=== PATIENT | male | born 1965 | race Hispanic/Latino ===

== ENCOUNTER 2016-08-11 02:28 | Emergency (ER) | payer MEDICAID ==
[2016-08-11 02:29] VITALS: BMI 21.9
[2016-08-11 02:52] VITALS: BP 115/69; PULSE 67; RESP 16; TEMP 97.6; O2SAT 100
--- NOTE | 2016-08-11 03:06 | ED PDOC ---
HPI: Back Time Seen by Provider: 08/11/16 03:05 Chief Complaint (Nursing): Back Pain Chief Complaint (Provider): back pain History Per: Patient Additional Complaint(s): 50-year-old male with no past medical history presents to emergency Department with pain to the right rib region status post fall 4 days ago. Patient took Silvana aspirin which did help the pain. He states pain is better with rest, worse with heavy lifting or movement of torso. No associated chest pain, SOB or NUR. Past Medical History Reviewed: Historical Data, Nursing Documentation, Vital Signs Vital Signs: Last Vital Signs Temp 97.6 F 08/11/16 02:44 Pulse 67 08/11/16 02:44 Resp 16 08/11/16 02:44 BP 115/69 08/11/16 02:44 Pulse Ox 100 08/11/16 02:44 - Medical History PMH: No Chronic Diseases - Surgical History Surgical History: No Surg Hx - Family History Family History: States: No Known Family Hx - Living Arrangements Living Arrangements: Alone - Social History Current smoker - smoking cessation education provided: Yes Alcohol: Social Drugs: Denies - Home Medications Home Medications: Ambulatory Orders Medication Instructions Recorded traMADol [Ultram] 50 mg PO Q6H PRN #15 tab 01/09/15 Ibuprofen 600 mg PO Q6 PRN #20 tablet 08/18/15 Salicylic Acid [Wart Remover] 9.12 ml TP BID #1 liquid 10/31/15 Albuterol HFA [Ventolin HFA 90 2 puff IH [id number] PRN #0 puff 11/09/15 mcg/actuation (8 g)] Azithromycin [Zithromax] 1 tab PO DAILY #6 tablet 11/09/15 Promethazine DM [Phenergan DM 5 ml PO BID PRN #120 ml 11/09/15 Syrup] Clotrimazole 1% [Lotrimin AF 1%] 0.5 gm TOP BID #1 bottle 02/18/16 Cyclobenzaprine [Cyclobenzaprine 10 mg PO Q8 PRN #9 tab 04/03/16 HCl] Naproxen [Naprosyn] 500 mg PO BID PRN #14 tablet 04/03/16 traMADol [Ultram] 50 mg PO TID PRN #12 tab 04/03/16 Ibuprofen [Motrin] 600 mg PO Q6 PRN #15 tab 08/11/16 - Allergies Allergies/Adverse Reactions: Allergies Allergy/AdvReac Type Severity Reaction Status Date / Time No Known Allergies Allergy Verified 08/11/16 02:43 Review of Systems ROS Statement: Except As Marked, All Systems Reviewed And Found Negative Musculoskeletal: Positive for: Other (right rib injury s/p fall 4 days ago) Physical Exam - Reviewed Nursing Documentation Reviewed: Yes Vital Signs Reviewed: Yes - Physical Exam Appears: Positive for: Well, Non-toxic, No Acute Distress Skin: Negative for: Rash Neck: Positive for: Painless ROM Cardiovascular/Chest: Positive for: Regular Rate, Rhythm, Other (mild tenderness along right costal margin and right lateral chest wall with no ecchymosis or palpable bony deformity) Respiratory: Positive for: Normal Breath Sounds. Negative for: Accessory Muscle Use, Respiratory Distress Gastrointestinal/Abdominal: Positive for: Normal Exam, Soft. Negative for: Tenderness Back: Positive for: R CVA Tenderness (mild). Negative for: L CVA Tenderness, Vertebral Tenderness Extremity: Positive for: Normal ROM. Negative for: Pedal Edema Neurologic/Psych: Positive for: Alert, Oriented, Gait (steady) - ECG O2 Sat by Pulse Oximetry: 100 Pulse Ox Interpretation: Normal - Other Rad CXR with right rib series X-Ray: Interpreted by Me, Viewed By Me X-Ray Interpretation: no acute rib fracture Medical Decision Making Medical Decision Makin50 year old with right rib injury, no resp distress noted. Plan: PO motrin CXR with right rib series Patient feels better after motrin dose. He is aware of x-ray results. All questions answered. Rx motrin given. Patient was counseled regarding smoking cessation. Patient was referred to clinic for follow up. Disposition - Clinical Impression Clinical Impression: Rib contusion - Patient ED Disposition Is Patient to be Admitted: No Counseled Patient/Family Regarding: Studies Performed, Diagnosis, Need For Followup, Rx Given, Smoking Cessation - Disposition Referrals: [facility] [Outside] Disposition: Routine/Home Disposition Time: 05:11 Condition: STABLE Additional Instructions: Take rx meds as directed as needed for pain. Follow up in 2-3 days with clinic. Prescriptions: Ibuprofen [Motrin] 600 mg PO Q6 PRN #15 tab PRN Reason: Pain, Moderate (4-7) Instructions: Rib Contusion (ED)
--- NOTE | 2016-08-11 10:58 | RAD ---
PROCEDURE: Radiographs of the Chest and Right Ribs. HISTORY: trauma COMPARISON: Chest x-ray performed 11/09/15 TECHNIQUE: Frontal radiograph of the chest and multiple oblique radiographs of the right ribs were obtained. FINDINGS: RIGHT RIBS: No acute displaced fracture identified. LUNGS: No focal consolidation. Please note that chest x-ray has limited sensitivity for the detection of pulmonary masses. PLEURA: No significant pleural effusion. No definite pneumothorax. CARDIOVASCULAR: Heart size appears within normal limits. OTHER FINDINGS: None. IMPRESSION: Unremarkable radiographs of the chest and right ribs. No appreciable displaced right rib fracture.
== END 2016-08-11 05:30 | disposition home or self-care (01) ==
LOC: H.ER 02:28
DX: S20.219A Contusion of unspecified front wall of thorax, initial encounter (principal); W19.XXXA Unspecified fall, initial encounter; Y92.89 Other specified places as the place of occurrence of the external cause

== ENCOUNTER 2016-09-02 07:34 | Emergency (ER) | payer MEDICAID ==
[2016-09-02 07:40] VITALS: BMI 21.2
[2016-09-02 07:41] VITALS: BP 124/74; PULSE 78; RESP 18; TEMP 98; O2SAT 100
[2016-09-02] MEDS ORDERED: Oxycodone/Acetaminophen 5/325 mg Tab PO ONE (08:09)
[2016-09-02] MEDS ORDERED: Oxycodone/Acetaminophen 5/325 mg Tab ONE (08:21)
--- NOTE | 2016-09-02 08:28 | ED PDOC ---
Upper Extremity Pain/Injury Time Seen by Provider: 09/02/16 07:48 Chief Complaint (Nursing): Upper Extremity Problem/Injury Chief Complaint (Provider): Right upper back pain History Per: Patient History/Exam Limitations: no limitations Onset/Duration Of Symptoms: Days (3) Current Symptoms Are (Timing): Still Present Quality: "Pain" Severity: Moderate Exacerbating Factor(s): Strenuous Use Of Affected Area Additional History Per: Patient Additional Complaint(s): The pt. is a 50yo male, present to the ED for evaluation of right upper back pain since 3 days ago; pt. reports he was painting and lifted a paint can after which he felt the pain. Pt reports the pain radiates down to his right elbow and has been constant. Pt. states he has been taking Aspirin with no relief - additionally reports took 3x 600 mg of Aleve this morning without relief. He denies any chest pain, shortness of breath, headache, nausea, vomiting, abdominal pain, numbness or tingling. Pt denies any other medical complaints. Past Medical History Reviewed: Historical Data, Nursing Documentation, Vital Signs Vital Signs: Last Vital Signs Temp 98.0 F 09/02/16 07:40 Pulse 78 09/02/16 07:40 Resp 18 09/02/16 07:40 BP 124/74 09/02/16 07:40 Pulse Ox 100 09/02/16 07:40 - Medical History PMH: Back Problems - Surgical History Surgical History: No Surg Hx - Family History Family History: States: Unknown Family Hx - Social History Current smoker - smoking cessation education provided: No Alcohol: None Drugs: Denies - Immunization History Hx Tetanus Toxoid Vaccination: No Hx Influenza Vaccination: No Hx Pneumococcal Vaccination: No - Home Medications Home Medications: Ambulatory Orders Medication Instructions Recorded traMADol [Ultram] 50 mg PO Q6H PRN #15 tab 01/09/15 Ibuprofen 600 mg PO Q6 PRN #20 tablet 08/18/15 Salicylic Acid [Wart Remover] 9.12 ml TP BID #1 liquid 10/31/15 Albuterol HFA [Ventolin HFA 90 2 puff IH [id number] PRN #0 puff 11/09/15 mcg/actuation (8 g)] Azithromycin [Zithromax] 1 tab PO DAILY #6 tablet 11/09/15 Promethazine DM [Phenergan DM 5 ml PO BID PRN #120 ml 11/09/15 Syrup] Clotrimazole 1% [Lotrimin AF 1%] 0.5 gm TOP BID #1 bottle 02/18/16 Cyclobenzaprine [Cyclobenzaprine 10 mg PO Q8 PRN #9 tab 04/03/16 HCl] Naproxen [Naprosyn] 500 mg PO BID PRN #14 tablet 04/03/16 traMADol [Ultram] 50 mg PO TID PRN #12 tab 04/03/16 Ibuprofen [Motrin] 600 mg PO Q6 PRN #15 tab 08/11/16 Ibuprofen [Motrin] 600 mg PO TID 7 Days 09/02/16 - Allergies Allergies/Adverse Reactions: Allergies Allergy/AdvReac Type Severity Reaction Status Date / Time No Known Allergies Allergy Verified 09/02/16 07:44 Review of Systems ROS Statement: Except As Marked, All Systems Reviewed And Found Negative Cardiovascular: Negative for: Chest Pain Respiratory: Negative for: Shortness of Breath Gastrointestinal: Negative for: Nausea, Vomiting, Abdominal Pain Musculoskeletal: Positive for: Arm Pain (right), Back Pain (right upper back) Neurological: Negative for: Weakness, Numbness, Headache Physical Exam - Reviewed Nursing Documentation Reviewed: Yes Vital Signs Reviewed: Yes - Physical Exam Appears: Positive for: Well, Non-toxic, No Acute Distress Head Exam: Positive for: ATRAUMATIC, NORMAL INSPECTION, NORMOCEPHALIC Skin: Positive for: Normal Color Neck: Positive for: Normal, Painless ROM, Supple Cardiovascular/Chest: Positive for: Regular Rate, Rhythm Respiratory: Positive for: Normal Breath Sounds. Negative for: Respiratory Distress Back: Positive for: Other (Right upper back tenderness mild). Negative for: L CVA Tenderness, R CVA Tenderness, Vertebral Tenderness, Decreased ROM Extremity: Positive for: Normal ROM. Negative for: Tenderness, Pedal Edema, Deformity, Swelling Neurologic/Psych: Positive for: Alert, Oriented - ECG ECG: Positive for: Interpreted By Me, Viewed By Me ECG Rhythm: Positive for: Normal QRS, Normal ST Segment, Sinus Rhythm O2 Sat by Pulse Oximetry: 100 (RA) Pulse Ox Interpretation: Normal - Radiology X-Ray: Interpreted by Me, Viewed By Me X-Ray Interpretation: No Acute Disease - Progress ED Course And Treament: 849: Pain improved. AAOx3. Ambulated with no issues. Fu with pcp. Medical Decision Making Medical Decision Making: Time: 0755 Impression: Right upper back pain Plan: * Consulted [place] CR[employer] COORDINATOR, pt was given only Tramadol in the past year * XR Right upper back * Percocet 1 tab PO * Reassess Scribe Attestation: Documented by Aleshia Conti acting as a scribe for Romulo Arguello MD. Provider Attestation: All medical record entries made by the Scribe were at my direction and personally dictated by me. I have reviewed the chart and agree that the record accurately reflects my personal performance of the history, physical exam, medical decision making, and the department course for this patient. I have also personally directed, reviewed, and agree with the discharge instructions and disposition. Disposition - Clinical Impression Clinical Impression: Back pain - Patient ED Disposition Is Patient to be Admitted: No Counseled Patient/Family Regarding: Studies Performed, Diagnosis, Need For Followup, Rx Given - Disposition Referrals: [facility] [Outside] - 09/03/16 Disposition: Routine/Home Disposition Time: 08:46 Condition: STABLE Additional Instructions: Return if not better in 3 days. Prescriptions: Ibuprofen [Motrin] 600 mg PO TID 7 Days Instructions: Back Pain (ED) Forms: [employer] (Tanzanian)
--- NOTE | 2016-09-02 11:24 | RAD ---
HISTORY: pain COMPARISON: No prior FINDINGS: BONES: Normal. No fracture. JOINTS: Acromioclavicular osteoarthritis. SOFT TISSUE: Normal. OTHER FINDINGS: None . IMPRESSION: No fracture.
== END 2016-09-02 09:01 | disposition home or self-care (01) ==
LOC: H.ER 07:34
DX: M54.9 Dorsalgia, unspecified (principal); M25.511 Pain in right shoulder